=== PATIENT | female | born 1965 | race Caucasian/White ===

== ENCOUNTER → 2017-06-12 | Outpatient (CLI) | payer OTHER ==
[~2017-06-12] VITALS: Ht 152.4 cm; Wt 63.5 kg
== END | disposition home or self-care (01) ==
LOC: PPHC 10:08
DX: R51 Headache (principal); J11.1 Influenza due to unidentified influenza virus with other respiratory manifestations; R53.1 Weakness; R50.9 Fever, unspecified

== ENCOUNTER 2017-08-28 10:50 | Outpatient (CLI) | payer OTHER | END 2017-08-28 10:55 | disposition home or self-care (01) | LOC: SONOGRAMA 10:50 | DX: M25.511 Pain in right shoulder (principal) ==

== ENCOUNTER 2018-11-08 13:34 | Outpatient (CLI) | payer OTHER | END 2018-11-08 13:36 | disposition home or self-care (01) | LOC: RAD 13:34 | DX: M25.511 Pain in right shoulder (principal) ==

== ENCOUNTER 2018-11-28 14:13 | Outpatient (CLI) | payer OTHER | END 2018-11-28 14:18 | disposition home or self-care (01) | LOC: SONOGRAMA 14:13 | DX: R10.2 Pelvic and perineal pain (principal) ==

== ENCOUNTER → 2019-01-08 | Day surgery (SDC) | payer OTHER | END | disposition home or self-care (01) | LOC: ADM 01-02 12:00 → CIR.AMB 06:39 | DX: N84.0 Polyp of corpus uteri (principal) ==

== ENCOUNTER 2021-09-05 08:10 | Emergency (ER) | payer OTHER ==
[~2021-09-05] VITALS: Ht 160 cm; Wt 61.2 kg
[2021-09-05] MEDS ORDERED: KETO10TA2 PO (12:47)
== END 2021-09-05 12:50 | disposition home or self-care (01) ==
LOC: ER 08:10
DX: S60.211A Contusion of right wrist, initial encounter (principal); S90.32XA Contusion of left foot, initial encounter; W18.39XA Other fall on same level, initial encounter; Y93.9 Activity, unspecified; Y92.018 Other place in single-family (private) house as the place of occurrence of the external cause; Y99.9 Unspecified external cause status

== ENCOUNTER 2022-10-03 08:30 | Emergency (ER) | payer OTHER ==
[~2022-10-03] VITALS: Ht 162.6 cm; Wt 61.2 kg
[~2022-10-03 08:30] MED LIST: KETO10TA2 PO
[2022-10-03] MEDS ORDERED: CEPACOL SORE T1 EAC1 PO (09:19)
== END 2022-10-03 09:28 | disposition home or self-care (01) ==
LOC: ER 08:30
DX: J04.0 Acute laryngitis (principal); J02.9 Acute pharyngitis, unspecified